=== PATIENT | female | born 2000 | race Caucasian/White ===

== ENCOUNTER 2023-03-08 19:00 | Inpatient (IN) | payer BC ==
[2023-03-08] MEDS ORDERED: Ibuprofen 800 MG TAB PO PRN (22:37)
[2023-03-08] MEDS ORDERED: hydrALAZINE 20 MG/ML VIAL SLOW IVP PRN (22:37)
[2023-03-08] MEDS ORDERED: Promethazine HCl 25 MG/ML VIAL IM PRN (22:37)
[2023-03-08] MEDS ORDERED: Lactated Ringer's 1,000 ML IV SCH (22:37)
[2023-03-08] MEDS ORDERED: Oxytocin 30 units/NS 500 ML 500 ML IV SCH ×3 (22:37)
[2023-03-08] MEDS ORDERED: fentaNYL 50 mcg/mL 1 mL Vial SLOW IVP PRN (22:37)
[2023-03-08] MEDS ORDERED: HYDROcodone/Acetaminophen 5/325 mg Tablet PO PRN ×2 (22:37)
[2023-03-08] MEDS ORDERED: Ondansetron PF 4 MG/2 ML Vial IVP PRN (22:37)
[2023-03-08] MEDS ORDERED: Misoprostol 100 MCG TAB VAG SCH ×2 (22:37)
[2023-03-08] MEDS ORDERED: Lidocaine 1% (PF) 30 ML VIAL SC PRN (22:37)
[2023-03-08 22:38] VITALS: BMI 32.7
[2023-03-08 23:49] LABS: Hematocrit 29.8 % (34.9-44.5); Hemoglobin 9.6 g/dL (12.0-15.5); Mean Corpuscular HGB CONC 32.2 g/dL (32.0-36.0); Mean Corpuscular Hemoglobin 26.4 pg (27.0-33.0); Mean Corpuscular Volume 82.1 fl (81.6-98.3); Mean Platelet Volume 12.6 fl (7.4-10.4); Platelet Count 182 10x3/uL (150-450); RBC Distribution Width 12.8 % (11.5-14.5); Red Blood Cell (RBC) Count 3.63 10x6/uL (3.90-5.03); White Blood Cell (WBC) Count 11.8 10x3/uL (3.5-10.5)
[2023-03-09 00:03] LABS: ALT (SGPT) 15 U/L (8-55); AST (SGOT) 24 U/L (5-34); Albumin 3.6 g/dL (3.5-5.0); Alkaline Phosphatase 210 U/L (40-110); Anion Gap 16 mmol/L (10-20); BUN (Urea Nitrogen) 14 mg/dL (7.0-18.7); Bilirubin, Total 0.3 mg/dL (0.2-1.2); Calc. Creatinine Clearance 155 mL/min (70-130); Carbon Dioxide 20 mmol/L (22-29); Chloride 106 mmol/L (98-107); Estimated GFR 119; Globulin 3.2 g/dL (2.4-3.5); Glucose 77 mg/dL (70-105); Potassium 4.2 mmol/L (3.5-5.1); Protein, Total 6.8 g/dL (6.0-8.3); Sodium 138 mmol/L (136-145)
[2023-03-09 00:14] LABS: HBSAg Index 0.13 S/CO (0-0.99); Hep B Surf Ag - L&D Non-Reactive S/CO (NonReactive)
[2023-03-09 00:15] LABS: Syphilis Antibody Nonreactive (Nonreactive); Syphilis Antibody Index 0.04 S/CO (<1.00 Non-Reactive)
[2023-03-09] MEDS ORDERED: fentaNYL/Ropivacaine Epidural 100 ML ONE (03:39)
[2023-03-09] MEDS ORDERED: Acetaminophen 325 MG TAB PO PRN (04:37)
[2023-03-09] MEDS ORDERED: Naloxone HCl 0.4 mg/ml Vial IVP PRN ×2 (04:37)
[2023-03-09] MEDS ORDERED: ePHEDrine Sulfate 50 MG/10 ML VIAL SLOW IVP PRN (04:37)
[2023-03-09] MEDS ORDERED: diphenhydrAMINE 50 MG/ML VIAL IVP PRN (04:37)
[2023-03-09] MEDS ORDERED: Lactated Ringer's 500 ML IV PRN (04:37)
[2023-03-09] MEDS ORDERED: Promethazine HCl 25 MG/ML VIAL IM PRN (04:37)
[2023-03-09] MEDS ORDERED: Ondansetron PF 4 MG/2 ML Vial IVP PRN ×2 (04:37→13:18)
[2023-03-09] MEDS ORDERED: Moisturizing Cream (Eucerin) 113 GM JAR TOP PRN (04:37)
[2023-03-09] MEDS ORDERED: Communication Order-Pharmacy FS SCH (04:45)
[2023-03-09] MEDS ORDERED: fentaNYL 2 mcg/Ropivacaine 0.2% Epidural 100 ML CADD EPIDURAL SCH (04:45)
[2023-03-09] MEDS ORDERED: Lanolin Ointment 7 GM TUBE TOP PRN (13:18)
[2023-03-09] MEDS ORDERED: Milk Of Magnesia 30 ML UDCUP PO PRN (13:18)
[2023-03-09] MEDS ORDERED: Preparation H Ointment 28 GM TUBE PR PRN (13:18)
[2023-03-09] MEDS ORDERED: diphenhydrAMINE 25 MG CAP PO PRN (13:18)
[2023-03-09] MEDS ORDERED: Boostrix 0.5 ML (Tdap) VIAL (>/=7 yrs of age) IM ONE (13:18)
[2023-03-09] MEDS ORDERED: HYDROcodone/Acetaminophen 5/325 mg Tablet PO PRN ×2 (13:18)
[2023-03-09] MEDS ORDERED: hydrALAZINE 20 MG/ML VIAL SLOW IVP PRN (13:18)
[2023-03-09] MEDS ORDERED: Bisacodyl 10 MG SUPP PR PRN (13:18)
[2023-03-09] MEDS ORDERED: Oxytocin 30 units/NS 500 ML 500 ML IV SCH (13:18)
[2023-03-09] MEDS ORDERED: Benzocaine-Menthol 82.5 ML CAN TOP PRN (13:18)
[2023-03-09] MEDS: Ibuprofen 800 MG TAB PO SCH ×2 (13:56→21:32)
[2023-03-09] MEDS: Ferrous Sulfate 325 MG TAB PO SCH (16:01)
[2023-03-09] MEDS: Docusate 100 MG CAP PO SCH (21:32)
[2023-03-10] MEDS: Ibuprofen 800 MG TAB PO SCH ×3 (05:05→21:27)
[2023-03-10] MEDS: Prenatal Vitamin 1 TAB PO SCH (08:25)
[2023-03-10] MEDS: Ferrous Sulfate 325 MG TAB PO SCH ×2 (08:25→17:22)
[2023-03-10] MEDS: Docusate 100 MG CAP PO SCH ×2 (08:25→21:27)
[2023-03-10] MEDS ORDERED: Bupivacaine 0.25% HCL 30 ML VIAL ONE (09:00)
[2023-03-10 21:29] VITALS: TEMP 98.6
[2023-03-11] MEDS: Ibuprofen 800 MG TAB PO SCH (05:29)
[2023-03-11 07:56] VITALS: BP 138/82
[2023-03-11] MEDS: Prenatal Vitamin 1 TAB PO SCH (08:09)
[2023-03-11] MEDS: Ferrous Sulfate 325 MG TAB PO SCH (08:09)
[2023-03-11] MEDS: Docusate 100 MG CAP PO SCH (08:09)
== END 2023-03-11 11:35 | disposition home or self-care (01) | DRG 807 ==
LOC: CSHLD 21:53 → CSHPP 03-09 13:10
PROVIDERS: ADMIT Obstetrics & Gynecology; ATTEND Obstetrics & Gynecology
PROC: 3E0P7VZ Introduction of Hormone into Female Reproductive, Via Natural or Artificial Opening (ICD-10-PCS; 2023-03-08)
PROC: 10E0XZZ Delivery of Products of Conception, External Approach (ICD-10-PCS; principal; 2023-03-09)
PROC: 0KQM0ZZ Repair Perineum Muscle, Open Approach (ICD-10-PCS; 2023-03-09)
PROC: 10907ZC Drainage of Amniotic Fluid, Therapeutic from Products of Conception, Via Natural or Artificial Opening (ICD-10-PCS; 2023-03-09)
DX: O70.1 Second degree perineal laceration during delivery (principal); Z37.0 Single live birth; Z3A.39 39 weeks gestation of pregnancy; O99.02 Anemia complicating childbirth; D64.9 Anemia, unspecified
CPT/HCPCS: 36415; 80053; 85027; 86780; 86850; 86900; 86901; 87340; J0360; J3010; J7120; S0020